=== PATIENT | female | born 1985 | race Hispanic/Latino ===

== ENCOUNTER 2017-08-27 14:02 | Emergency (ER) | payer SELFPAY, OTHER ==
[2017-08-27 14:55] LABS: Pregnancy Test - Urine (BHCG) Negative (Negative); Pregu Control Background? CLEAR/WHITE (CLR/WHITE); Pregu Control Bar Appear? YES (CONTROL BAR); Specific Gravity 1.012 (1.002-1.036)
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
== END 2017-08-27 16:21 | disposition home or self-care (01) ==
LOC: ERS 14:02
DX: S39.012A Strain of muscle, fascia and tendon of lower back, initial encounter (principal); V89.2XXA Person injured in unspecified motor-vehicle accident, traffic, initial encounter
CPT/HCPCS: 72100; 81025

== ENCOUNTER 2018-09-22 07:38 | Outpatient (CLI) | payer OTHER ==
--- NOTE | 2018-09-22 08:51 | ULT ---
OB ULTRASOUND: INDICATIONS: anatomy. FINDINGS: There is a single viable intrauterine gestation. Gestational age by ultrasound is 21 weeks 4 days. BPD: 21 weeks 3 days HC: 21 weeks 1 day AC: 21 weeks 5 days FL: 21 weeks 6 days EFW: 436 g 21 weeks 5 days) PLACNETA: Anterior. POSITION: Vertex. AMNIOTIC FLUID: Adequate. LILI recorded at 16.83 cm. HEART RATE: 144 beats per minute. CERVICAL LENGTH: 5.14 cm. Intracranial structures, visualized spine, stomach, kidneys, urinary bladder, four-chamber heart, fac e, extremities, three-vessel cord, and cord insertion are all imaged and appear unremarkable. No abn ormality identified. IMPRESSION: A 58-pcmf-4-day gestation by ultrasound measurement. No abnormality identified. POS: [facility]
== END 2018-09-22 07:39 | disposition home or self-care (01) ==
LOC: BICULT 07:38
PROVIDERS: ATTEND Family Medicine
DX: Z34.82 Encounter for supervision of other normal pregnancy, second trimester (principal); Z3A.21 21 weeks gestation of pregnancy
CPT/HCPCS: 76805

== ENCOUNTER 2019-02-05 11:30 | Inpatient (IN) | payer MEDICAID, OTHER, SELFPAY ==
[2019-02-05 12:07] VITALS: BMI 38.7
[2019-02-05] MEDS: Lactated Ringer's 1,000 ML IV SCH ×2 (12:09→13:43)
[2019-02-05] MEDS ORDERED: Fentanyl 4 mcg/Bup 0.1% Cadd 100 ML ONE (12:12)
[2019-02-05 12:16] LABS: #Eosinphils 0.1 thou/uL (0.0-0.7); #Lymphocytes 1.9 thou/uL (1.20-3.40); #Monocytes 0.4 thou/uL (0.11-0.59); #Neutrophils 6.2 thou/uL (1.40-6.50); %Basophils 0.1 % (0.0-1.0); %Eosinophils 1.2 % (0.0-10.0); %Lymphocytes 22.1 % (21.0-51.0); %Neutrophils 71.6 % (42.0-75.0); Hemoglobin 13.3 g/dL (12.0-16.0); Mean Corpuscular HGB CONC 35.2 g/dL (32.0-36.0); Mean Corpuscular Volume 87.9 fL (78.0-98.0); Mean Platelet Volume 8.2 fL (7.4-10.4); Platelet Count 248 thou/uL (130-400); RBC Distribution Width 12.6 % (11.5-14.5); White Blood Cell (WBC) Count 8.7 thou/uL (4.8-10.8)
[2019-02-05] MEDS ORDERED: NS / Oxytocin 40 units/1000ml 1,000 ML ONE (12:25)
[2019-02-05] MEDS ORDERED: Lidocaine 1% (PF) 30 ML VIAL ONE (12:25)
[2019-02-05] MEDS ORDERED: NS / Oxytocin 40 units/1000ml 1,000 ML IV PRN (12:33)
[2019-02-05] MEDS ORDERED: Carboprost 250 MCG/ML AMP IM PRN (12:33)
[2019-02-05] MEDS ORDERED: HYDROcodone/Acetaminophen 5/325 mg Tablet PO PRN ×3 (12:33→19:23)
[2019-02-05] MEDS ORDERED: Ibuprofen 800 MG TAB PO PRN (12:33)
[2019-02-05] MEDS ORDERED: Butorphanol Tartrate 1 MG/ML VIAL SLOW IVP PRN (12:33)
[2019-02-05] MEDS ORDERED: hydrALAZINE 20 MG/ML VIAL SLOW IVP PRN ×2 (12:33→19:23)
[2019-02-05] MEDS ORDERED: Methylergonovine 0.2 MG/ML VIAL IM PRN (12:33)
[2019-02-05] MEDS ORDERED: Misoprostol 200 MCG TAB PR PRN (12:33)
[2019-02-05] MEDS ORDERED: Diphenoxylate HCl/Atropine Tablet PO PRN (12:33)
[2019-02-05] MEDS ORDERED: Promethazine HCl 25 MG/ML VIAL IM PRN ×3 (12:33→19:23)
[2019-02-05] MEDS ORDERED: Ondansetron PF 4 MG/2 ML Vial IVP PRN ×3 (12:33→19:23)
[2019-02-05] MEDS ORDERED: Lidocaine 1% (PF) 30 ML VIAL SC PRN (12:33)
[2019-02-05] MEDS ORDERED: Butorphanol Tartrate 1 MG/ML VIAL ONE (12:33)
[2019-02-05] MEDS ORDERED: NS w/ Oxytocin 10 units 500 ML IV SCH ×2 (12:45)
[2019-02-05 12:58] LABS: Syphilis Antibody Nonreactive (Nonreactive); Syphilis Antibody Index 0.04 S/CO (<1.00 Non-Reactive)
[2019-02-05] MEDS ORDERED: Naloxone HCl 0.4 mg/ml Vial IVP PRN ×2 (13:05)
[2019-02-05] MEDS ORDERED: Acetaminophen 325 MG TAB PO PRN (13:05)
[2019-02-05] MEDS ORDERED: diphenhydrAMINE 50 MG/ML VIAL IVP PRN (13:05)
[2019-02-05] MEDS ORDERED: Lactated Ringer's 500 ML IV PRN (13:05)
[2019-02-05] MEDS ORDERED: ePHEDrine/0.9% NaCl/PF SYRINGE 50 mg/10 ml SLOW IVP PRN (13:05)
[2019-02-05 13:10] LABS: HBCM Index 0.05 S/CO (0-0.79); HIV (1/2) Antibody/Antigen Non-Reactive (NonReactive); HIV 1/2 INDEX 0.12 S/CO (<1.00); Hepatitis B Core IgM Abs Non-Reactive (NonReactive)
[2019-02-05] MEDS ORDERED: Communication Order-Pharmacy FS SCH (13:15)
[2019-02-05] MEDS ORDERED: Fentanyl 4 mcg/Bupivacaine 0.1% Cassette 100 ML EPIDURAL SCH (13:15)
[2019-02-05] MEDS ORDERED: Bupivacaine 0.25% HCL 30 ML VIAL ONE (17:38)
[2019-02-05] MEDS ORDERED: Benzocaine-Menthol 82.5 ML CAN TOP PRN (19:23)
[2019-02-05] MEDS ORDERED: Lanolin Ointment 7 GM TUBE TOP PRN (19:23)
[2019-02-05] MEDS ORDERED: Preparation H Ointment 28 GM TUBE PR PRN (19:23)
[2019-02-05] MEDS ORDERED: Bisacodyl 10 MG SUPP PR PRN (19:23)
[2019-02-05] MEDS ORDERED: NS / Oxytocin 40 units/1000ml 1,000 ML IV SCH (19:23)
[2019-02-05] MEDS ORDERED: Milk Of Magnesia 30 ML UDCUP PO PRN (19:23)
[2019-02-05] MEDS ORDERED: diphenhydrAMINE 25 MG CAP PO PRN (19:23)
[2019-02-05] MEDS: Docusate Calcium (SURFAK) 240 MG CAP PO SCH (22:00)
[2019-02-05] MEDS: Ibuprofen 800 MG TAB PO SCH (22:00)
[2019-02-06 04:28] LABS: Hemoglobin 11.2 g/dL (12.0-16.0); Mean Corpuscular HGB CONC 34.5 g/dL (32.0-36.0); Mean Corpuscular Hemoglobin 31.1 pg (27.0-31.0); Mean Corpuscular Volume 90.1 fL (78.0-98.0); Mean Platelet Volume 8.1 fL (7.4-10.4); Platelet Count 193 thou/uL (130-400); RBC Distribution Width 12.4 % (11.5-14.5); White Blood Cell (WBC) Count 11.8 thou/uL (4.8-10.8)
[2019-02-06] MEDS: Ibuprofen 800 MG TAB PO SCH ×2 (05:20→14:32)
[2019-02-06] MEDS ORDERED: Prenatal Vitamin 1 TAB PO SCH (09:00)
[2019-02-06] MEDS ORDERED: Adacel (T-DAP) 0.5 ML SYRINGE IM ONE (09:00)
[2019-02-06] MEDS: Ferrous Sulfate 325 MG TAB PO SCH ×2 (10:27→15:32)
[2019-02-06] MEDS: Docusate Calcium (SURFAK) 240 MG CAP PO SCH (10:27)
[2019-02-06 16:58] VITALS: BP 100/52; TEMP 98.4
== END 2019-02-06 18:25 | disposition home or self-care (01) | DRG 807 ==
LOC: L&D/OP 11:30 → L&D 12:03 → 3SW 21:04
PROVIDERS: ADMIT Family Medicine; ATTEND Family Medicine
PROC: 10E0XZZ Delivery of Products of Conception, External Approach (ICD-10-PCS; principal; 2019-02-05)
DX: O48.0 Post-term pregnancy (principal); Z37.0 Single live birth; Z3A.40 40 weeks gestation of pregnancy
CPT/HCPCS: 36415; 51702; 85025; 85027; 86705; 86780; 86850; 86900; 86901; 87389; 99285; J0595; J2001; J2590; S0020